=== PATIENT | female | born 1965 | race Two or more races ===

== ENCOUNTER 2020-08-29 14:06 | Outpatient (REF) | payer MEDICARE, SELFPAY | END 2020-08-29 14:07 | disposition home or self-care (01) | LOC: HO.LAB 14:06 | PROVIDERS: Visit Provider Internal Medicine | DX: Z20.828 Contact with and (suspected) exposure to other viral communicable diseases (principal) | CPT/HCPCS: C9803; U0003 ==

== ENCOUNTER 2020-09-18 12:27 | Outpatient (REF) | payer MEDICARE, SELFPAY | END 2020-09-18 12:28 | disposition home or self-care (01) | LOC: HO.LAB 12:27 | PROVIDERS: Visit Provider Internal Medicine | DX: Z20.822 Contact with and (suspected) exposure to COVID-19 (principal) | CPT/HCPCS: 36415; C9803; U0003 ==

== ENCOUNTER 2020-10-07 13:24 | Outpatient (REF) | payer MEDICARE, SELFPAY | END 2020-10-07 13:25 | disposition home or self-care (01) | LOC: HO.LAB 13:24 | PROVIDERS: Visit Provider Internal Medicine | DX: Z20.822 Contact with and (suspected) exposure to COVID-19 (principal) | CPT/HCPCS: 36415; C9803; U0003; U0005 ==

== ENCOUNTER 2020-10-21 09:11 | Outpatient (REF) | payer MEDICARE, SELFPAY | END 2020-10-21 09:12 | disposition home or self-care (01) | LOC: HO.LAB 09:11 | PROVIDERS: Visit Provider Internal Medicine | DX: Z20.822 Contact with and (suspected) exposure to COVID-19 (principal) | CPT/HCPCS: 36415; C9803; U0003; U0005 ==

== ENCOUNTER 2020-10-28 09:25 | Outpatient (REF) | payer MEDICARE, SELFPAY | END 2020-10-28 09:26 | disposition home or self-care (01) | LOC: HO.LAB 09:25 | PROVIDERS: Visit Provider Internal Medicine | DX: Z20.822 Contact with and (suspected) exposure to COVID-19 (principal) | CPT/HCPCS: 36415; C9803; U0003; U0005 ==

== ENCOUNTER 2021-07-10 11:26 | Observation (INO) | payer MEDICARE, SELFPAY ==
--- NOTE | ~2021-07-10 | XR_ITS ---
EXAMINATION: XR CHEST CLINICAL INFORMATION: Right facial droop COMPARISON: August 27, 2009 TECHNIQUE: Frontal view of the chest was obtained. FINDINGS: No significant abnormality is noted involving the heart, lungs, mediastinum, bony thorax or soft tissues. XR/XR chest 1V IMPRESSION: No acute disease.
--- NOTE | ~2021-07-10 | CT_ITS ---
EXAMINATION: CT HEAD WITHOUT CONTRAST (STROKE PROTOCOL) CLINICAL INFORMATION: Stroke protocol. Left facial droop since yesterday COMPARISON: April 20, 2017 TECHNIQUE: Contiguous axial imaging was performed from the skull base to vertex without intravenous administration of contrast. This CT examination was performed using dose optimization techniques as appropriate, variously including the following: *Automated exposure control *Adjustment of mA and/or kV according to patient size (this includes techniques or standardized protocols for targeted exams where dose is matched to indication/reason for exam; i.e. extremities or head) *Use of iterative reconstruction technique DLP: 657 mGy-cm FINDINGS: There is no intracranial hemorrhage, hematoma, or extra-axial fluid collection. The ventricles are normal in size. There is no hydrocephalus, edema, or mass effect. The tabor-white matter differentiation appears symmetric. There is no acute infarct or mass lesion. The calvarium appears intact. There is no pneumocephalus or orbital emphysema. The visualized sinuses and middle ears and mastoid air cells show no significant mucosal thickening. There are no air-fluid levels. CT/CT head for stroke IMPRESSION: No acute intracranial pathology. This critical result was discussed with Dr. Diaz at 12:03 PM hours on July 10, 2021. It was ascertained that the content and urgency of the report was understood at the time of direct communication.
[2021-07-10 11:31] VITALS: BP 133/80; PULSE 64; RESP 18; TEMP 36.6; O2SAT 99; BMI 27.1
--- NOTE | 2021-07-10 11:36 | ECG_ITS ---
Test Reason : STROKE Blood Pressure : / mmHG Vent. Rate : 060 BPM Atrial Rate : 060 BPM P-R Int : 130 ms QRS Dur : 080 ms QT Int : 418 ms P-R-T Axes : 056 038 049 degrees QTc Int : 418 ms Normal sinus rhythm Low voltage QRS Intra-ventricular conduction delay Borderline ECG When compared with ECG of 10-MAR-2017 13:43, No significant change was found Referred By: Generic ED Physician Electronically Signed By:DALE VÁSQUEZ MD
[2021-07-10 11:37] VITALS: BP 127/78; PULSE 65; RESP 18; TEMP 36.6; O2SAT 98
--- NOTE | 2021-07-10 12:00 | PC.NURSE ---
Addendum entered by Jaimee Vila RN 07/10/21 12:07: Patient states she has pressure in back of neck, states while driving to the hospital she states her face started feeling twitchy and felt her face froze driving here about 45 minutes ago. Patient Neuro deficit WDL. A+ox4. Symmetrical facial features. Patient able to raise both arms. Patient sensory WDL. VSS. Labs drawn and sent. IV placed and flushed. POC 95. NSR on tele. Original Note: patient states she has pressure in back of neck, states she was driving to hospital and states her face started feeling twitchy and felt her face froze driving here about 30 minutes ago.
[2021-07-10 12:09] LABS: MANUAL DIFF FLAG NO
[2021-07-10 12:14] LABS: Basophils Percent Auto 0.5 % (0-2); Eosinophils Absolute Auto 0.2 X10*3/uL (0.0-0.4); Eosinophils Percent Auto 2.7 % (0-4); Hematocrit 36.6 % (37.0-47.0); Hemoglobin 11.7 g/dl (12.0-16.0); Imm Gran Abs Auto 0.02 X10*3/uL (0.00-0.03); Imm Gran Pct Auto 0.3 % (0.0-0.4); Lymphocytes Percent Auto 25.7 % (20-40); Mean Corpuscular Hemoglobin 27.7 pg (27.0-33.0); Mean Corpuscular Volume 86.5 fL (80.0-98.0); Mean Platelet Volume 10.5 fL (9.4-12.3); Monocytes Absolute Auto 0.4 X10*3/uL (0.1-1.2); Monocytes Percent Auto 5.6 % (2-11); Neutrophils Absolute Auto 5.2 x10*3/uL (2.0-8.3); Neutrophils Percent Auto 65.2 % (45-73); Platelet Count 280 X10*3/uL (160-400); Red Blood Count 4.23 X10*6/uL (4.20-5.50); Red Cell Distribution Width 14.6 % (11.0-16.0); White Blood Count 7.9 X10*3/uL (4.8-10.8)
[2021-07-10 12:15] LABS: Glucose, Whole Blood 95 mg/dL (60-115)
[2021-07-10 12:17] LABS: INTERNATIONAL NORM RATIO 1.1 (0.9-1.1); Prothrombin Time 12.2 SEC (9.9-13.0)
--- NOTE | 2021-07-10 12:19 | ED.NEUROSD ---
HPI - Neuro Symptoms/Deficit General Chief Complaint: Neuro Symptoms/Deficit Stated Complaint: lt head pain, lt side facial droop Time Seen by Provider: 07/10/21 12:12 Source: patient and population health coach Mode of arrival: ambulatory Limitations: language barrier History of Present Illness HPI Narrative: 55-year-old female with history of MG, anxiety, GERD, previous CVA on 81mg daily here with complaints of left sided neck pain/pressure since yesterday with 30 minutes of left sided facial weakness. No visual changes, no numbness, tingling, speech changes, weakness in the extremities. Patient does report bilateral lower leg numbness and tingling since waking. No headache, dizziness. Patient takes 81 mg of aspirin daily. She has a history of myasthenia gravis and was diagnosed about 3 years ago. She is followed by Dr. Reddy from Neurology. She was taking pyridostimigime TID until 11/2020 when she ran out. She tells me she did not follow-up neurology because they did not call me for a follow-up. She denies any difficulty breathing or coughing. No difficulty tolerating secretion. No difficulty swallowing. No visual changes. Related Data Home Medications Medication Instructions Recorded Confirmed albuterol sulfate 90 mcg/actuation 2 puff INHALATION QID PRN 07/10/21 07/10/21 aerosol inhaler aspirin 81 mg tablet,delayed 1 tab PO ONCE 07/10/21 07/10/21 release carbidopa ER 25 mg-levodopa 100 mg 1 tab PO TID 07/10/21 07/10/21 tablet,extended release cholecalciferol (vitamin D3) 25 1 cap PO DAILY 07/10/21 07/10/21 mcg (1,000 unit) capsule (Vitamin D3) clonazepam 0.5 mg tablet 1 tab PO BID 07/10/21 07/10/21 duloxetine 60 mg capsule,delayed 1 cap PO BID 07/10/21 07/10/21 release ibuprofen 800 mg tablet 1 tab PO TID PRN 07/10/21 07/10/21 multivitamin with folic acid 400 1 tab PO DAILY 07/10/21 07/10/21 mcg tablet (Daily-Josie (with folic acid)) omeprazole 20 mg capsule,delayed 1 cap PO DAILY 07/10/21 07/10/21 release Allergies Allergy/AdvReac Type Severity Reaction Status Date / Time ANTIBIOTIC Allergy Unknown UNKNOWN Uncoded 05/16/20 17:06 Review of Systems Review of Systems: Yes all other systems are reviewed and are negative Constitutional: Constitutional: Reports no additional constitutional complaints, Denies body ache(s), Denies chills, Denies fever(s), Denies headache(s) and Reports weakness Eyes: Eyes: Reports no additional eye complaints and Denies change in vision ENT: Reports system reviewed and no additional complaints, except as documented, Denies dizziness, Denies headache(s), Denies nasal congestion, Denies nasal discharge and Reports neck pain Cardiovascular: Cardiovascular: Reports no additional cardiovascular complaints, Denies chest pain, Denies leg edema and Denies dyspnea Respiratory: Respiratory: Reports no additional respiratory complaints, Denies cough and Denies dyspnea Gastrointestinal: Gastrointestinal: Reports no additional gastrointestinal complaints, Denies abdominal pain, Denies diarrhea, Denies nausea and Denies vomiting Genitourinary: Genitourinary: Reports no additional female genitourinary complaints and Denies urinary incontinence Musculoskeletal: Musculoskeletal: Reports no additional musculoskeletal complaints, Denies back pain, Denies arthralgias, Denies joint swelling, Reports neck pain, Denies numbness and Denies tingling Integumentary/Breasts: Skin/Breast: Reports system reviewed and no additional complaints, except as docu and Denies rash Neurologic: Reports system reviewed and no additional complaints, except as documented, Denies Abnormal speech present, Denies dizziness, Denies headache(s), Denies numbness, Denies tingling and Reports weakness PMFSH Past Medical History Attestation statement: The following information was validated with the patient. Source: old records reviewed and nursing notes reviewed Medical History Anxiety Depression Gastroesophageal reflux disease Myasthenia gravis Social History Social History Advance Directives: No Advance Directives Information Provided: No Patient : No Physical Exam Vital Signs: Vital Signs: Last Vital Signs Temp 97.8 F 07/10/21 15:12 Pulse 55 07/10/21 15:12 Resp 18 07/10/21 15:12 BP 126/64 07/10/21 15:12 Pulse Ox 97 07/10/21 15:12 Body Mass Index 27.1 Const: General: cooperative, healthy appearing, comfortable and no acute distress Orientation/consciousness: patient oriented x3 Limitations: no limitations HENMT: Head: Yes normal to inspection Ears: hearing grossly normal bilaterally and TM's normal bilaterally General nose exam: Normal external nose present Face and sinus: Yes normal facial exam Mouth: Normal oral and palatal mucosa present Throat: Yes posterior oropharynx normal Eyes: General: appearance normal, both eyes and all related structures Pupils: Equal, round and reactive pupils present Neck: Other: Tenderness the left side of the neck over the posterior ossific it with no palpable thrill or bruit. NO swelling. Neck: Yes normal visual inspection Chest: Chest palpation & inspection: normal inspection of the chest Resp: Effort & Inspection: normal respiratory effort Auscultation: clear to auscultation bilaterally Cardio: Rate: regular rate Rhythm: regular rhythm Peripheral pulses: Peripheral pulses 2+ throughout GI: Inspection: Yes normal to inspection Palpation (GI): Soft to palpation and nontender Auscultation: normal bowel sounds Back/Spine/Pelvis: Thoracic/Lumbar Spine: thoracic and lumbar spine normal to inspection Skin: General skin exam: no rashes or lesions noted Neuro: General: patient oriented x3, no focal motor deficits and normal sensation to monofilament Cranial nerves: Yes CN's II-XII intact bilaterally, Yes Equal, round and reactive pupils present, Yes Bilaterally intact EOM present, Yes Nystagmus not present, Yes Normal facial strength present and Yes Midline tongue present Cognition (Neuro): normal cognition Speech: No Abnormal speech present Motor exam (neuro): 5/5 motor strength present throughout Sensory Exam: Normal double simultaneous stimulation for sensation Coordination: [id number] test normal and [id number] test normal Extrem: General: Yes normal to inspection, Yes no pedal edema and Yes no calf tenderness Course Course Course Narrative: 55-year-old female with history of myasthenia gravis, prior strokes here with complaints of left-sided neck pain since yesterday with 30 minutes of left-sided facial weakness. On exam the patient has an NIH score of 0. She is complaining of some left-sided facial twitching and I do noticed a spasm on exam and a slight droop but equal facial strength, sensation intact, tongue is midline with clear speech. There is a palpable muscle spasm over the left posterior occip and upper neck with no swelling, bruit/thrill. Feels more MS. Not likely related to reports of facial weakness. Less likely acute CVA with NIH 0. Will check labs, CT head, CXR, EKG Reevaluation(s) Reevaluation #1: 1215-The case was discussed with Dr. Chun. She went to evaluate the patient. Her exam is normal. Her NIH score is 0. She tells me that she feels like her weakness in her face is improved. We discussed obtaining a CT head and neck. Likely admit for TIA workup. Consider myasthenia gravis crisis. Less likely with improving exam. No other complaints of difficulty breathing, difficulty swallowing, tolerating secretions, weakness of the trunk, visual changes. However plan to discuss with Neurology Reevaluation #2: 0773-[id number] the patient with no change. NIH 0. Patient quite anxious, tearful at times. Feel she is allergic to IV contrast. When I asked the patient what her symptoms are she tells me palpitations and chest discomfort. But denies any shortness of breath, rash, vomiting, diarrhea. I do not feel like this is a true allergy but typical side effect of medication. Offered anxiety medication pre-procedure but patient declined. This was explained at length to patient with many alternatives offered but patient refused. Reevaluation #3: 0431-Spoke to Dr Reddy. Not likely MS crisis. Will admit for TIA w/u Additional Reevaluation(s): 7100-Discussed the case with Dr Ovalles who will admit patient MDM - Neuro Symptoms/Deficit MDM Narrative Medical decision making narrative: MG crisis, CVA, ICH, TIA Medical Records Attestation: I reviewed the patient's medical records. Lab Data Attestation: I reviewed the patient's lab results. Result diagrams: 07/10/21 12:06 07/10/21 12:06 Labs: Lab Results 07/10/21 07/10/21 07/10/21 Range/Units 12:02 12:06 12:06 WBC 7.9 (4.8-10.8) X10*3/uL RBC 4.23 (4.20-5.50) X10*6/uL Hgb 11.7 L (12.0-16.0) g/dl Hct 36.6 L (37.0-47.0) % MCV 86.5 (80.0-98.0) fL MCH 27.7 (27.0-33.0) pg MCHC 32.0 (31.0-35.0) g/dl RDW 14.6 (11.0-16.0) % Plt Count 280 (160-400) X10*3/uL MPV 10.5 (9.4-12.3) fL Immature Gran % (Auto) 0.3 (0.0-0.4) % Neut % (Auto) 65.2 (45-73) % Lymph % (Auto) 25.7 (20-40) % Phillips % (Auto) 5.6 (2-11) % Eos % (Auto) 2.7 (0-4) % Baso % (Auto) 0.5 (0-2) % Lymph # (Auto) 2.0 (1.2-4.9) X10*3/uL Phillips # (Auto) 0.4 (0.1-1.2) X10*3/uL Eos # (Auto) 0.2 (0.0-0.4) X10*3/uL Baso # (Auto) 0.0 (0.0-0.2) X10*3/uL Abs Immat Gran (auto) 0.02 (0.00-0.03) X10*3/uL Absolute Neuts (auto) 5.2 (2.0-8.3) x10*3/uL Absolute Nucleated RBC 0.000 (0.0-0.012) X10*3/uL Nucleated RBC % (auto) 0.0 (0.0-0.2) /100WBC PT 12.2 (9.9-13.0) SEC INR 1.1 (0.9-1.1) Sodium (135-145) mmol/L Potassium (3.3-5.1) mmol/L Chloride (96-108) mmol/L Carbon Dioxide (22-29) mmol/L Anion Gap (12-20) BUN (9-16) mg/dL Creatinine (0.5-1.4) mg/dL Estim Creat Clear Calc Estimated GFR POC Glucose 95 (60-115) mg/dL Random Glucose (60-115) mg/dL Calcium (8.4-10.2) mg/dL Magnesium (1.6-2.6) mg/dL Total Bilirubin (0.0-1.0) mg/dL Direct Bilirubin (0.0-0.5) mg/dL AST (5-31) U/L ALT (0-31) U/L Alkaline Phosphatase (39-117) U/L Troponin I High Sens (<3.5-17.0) ng/L Total Protein (6.5-8.0) g/dL Albumin (3.5-5.0) g/dL Hold Red Top COVID-19 (PREMA) (Negative) COVID-19 Clin Com 07/10/21 07/10/21 07/10/21 Range/Units 12:06 12:06 12:06 WBC (4.8-10.8) X10*3/uL RBC (4.20-5.50) X10*6/uL Hgb (12.0-16.0) g/dl Hct (37.0-47.0) % MCV (80.0-98.0) fL MCH (27.0-33.0) pg MCHC (31.0-35.0) g/dl RDW (11.0-16.0) % Plt Count (160-400) X10*3/uL MPV (9.4-12.3) fL Immature Gran % (Auto) (0.0-0.4) % Neut % (Auto) (45-73) % Lymph % (Auto) (20-40) % Phillips % (Auto) (2-11) % Eos % (Auto) (0-4) % Baso % (Auto) (0-2) % Lymph # (Auto) (1.2-4.9) X10*3/uL Phillips # (Auto) (0.1-1.2) X10*3/uL Eos # (Auto) (0.0-0.4) X10*3/uL Baso # (Auto) (0.0-0.2) X10*3/uL Abs Immat Gran (auto) (0.00-0.03) X10*3/uL Absolute Neuts (auto) (2.0-8.3) x10*3/uL Absolute Nucleated RBC (0.0-0.012) X10*3/uL Nucleated RBC % (auto) (0.0-0.2) /100WBC PT (9.9-13.0) SEC INR (0.9-1.1) Sodium 140 (135-145) mmol/L Potassium 4.1 (3.3-5.1) mmol/L Chloride 107 (96-108) mmol/L Carbon Dioxide 26 (22-29) mmol/L Anion Gap 11 L (12-20) BUN 11 (9-16) mg/dL Creatinine 0.75 (0.5-1.4) mg/dL Estim Creat Clear Calc 85.3 Estimated GFR > 60 POC Glucose (60-115) mg/dL Random Glucose 104 (60-115) mg/dL Calcium 9.0 (8.4-10.2) mg/dL Magnesium 1.9 (1.6-2.6) mg/dL Total Bilirubin 0.5 (0.0-1.0) mg/dL Direct Bilirubin 0.2 (0.0-0.5) mg/dL AST 20 (5-31) U/L ALT 7 (0-31) U/L Alkaline Phosphatase 61 (39-117) U/L Troponin I High Sens < 3.5 (<3.5-17.0) ng/L Total Protein 7.2 (6.5-8.0) g/dL Albumin 4.1 (3.5-5.0) g/dL Hold Red Top See Note COVID-19 (PREMA) (Negative) COVID-19 Clin Com 07/10/21 Range/Units 12:17 WBC (4.8-10.8) X10*3/uL RBC (4.20-5.50) X10*6/uL Hgb (12.0-16.0) g/dl Hct (37.0-47.0) % MCV (80.0-98.0) fL MCH (27.0-33.0) pg MCHC (31.0-35.0) g/dl RDW (11.0-16.0) % Plt Count (160-400) X10*3/uL MPV (9.4-12.3) fL Immature Gran % (Auto) (0.0-0.4) % Neut % (Auto) (45-73) % Lymph % (Auto) (20-40) % Phillips % (Auto) (2-11) % Eos % (Auto) (0-4) % Baso % (Auto) (0-2) % Lymph # (Auto) (1.2-4.9) X10*3/uL Phillips # (Auto) (0.1-1.2) X10*3/uL Eos # (Auto) (0.0-0.4) X10*3/uL Baso # (Auto) (0.0-0.2) X10*3/uL Abs Immat Gran (auto) (0.00-0.03) X10*3/uL Absolute Neuts (auto) (2.0-8.3) x10*3/uL Absolute Nucleated RBC (0.0-0.012) X10*3/uL Nucleated RBC % (auto) (0.0-0.2) /100WBC PT (9.9-13.0) SEC INR (0.9-1.1) Sodium (135-145) mmol/L Potassium (3.3-5.1) mmol/L Chloride (96-108) mmol/L Carbon Dioxide (22-29) mmol/L Anion Gap (12-20) BUN (9-16) mg/dL Creatinine (0.5-1.4) mg/dL Estim Creat Clear Calc Estimated GFR POC Glucose (60-115) mg/dL Random Glucose (60-115) mg/dL Calcium (8.4-10.2) mg/dL Magnesium (1.6-2.6) mg/dL Total Bilirubin (0.0-1.0) mg/dL Direct Bilirubin (0.0-0.5) mg/dL AST (5-31) U/L ALT (0-31) U/L Alkaline Phosphatase (39-117) U/L Troponin I High Sens (<3.5-17.0) ng/L Total Protein (6.5-8.0) g/dL Albumin (3.5-5.0) g/dL Hold Red Top COVID-19 (PREMA) Negative (Negative) COVID-19 Clin Com See Note Imaging Data CT scan - head: Attestation: I personally reviewed and interpreted this imaging study as follows: Radiologist's impression: [id number] [place] [id number] CT Scan Report Signed Patient: Ирина Parekh MR#: [id number] : 1965 Acct:[id number] Age/Sex: 55 / F ADM Date: 07/10/21 Loc: .ED Attending Dr: Ordering Physician: Generic ED Physician Date of Service: 07/10/21 Procedure(s): CT head for stroke Accession Number(s): [id number] cc: Generic ED Physician~ EXAMINATION: CT HEAD WITHOUT CONTRAST (STROKE PROTOCOL) CLINICAL INFORMATION: Stroke protocol. Left facial droop since yesterday? COMPARISON: April 20, 2017 TECHNIQUE: Contiguous axial imaging was performed from the skull base to vertex without intravenous administration of contrast. This CT examination was performed using dose optimization techniques as appropriate, variously including the following: *Automated exposure control *Adjustment of mA and/or kV according to patient size (this includes techniques or standardized protocols for targeted exams where dose is matched to indication/reason for exam; i.e. extremities or head) *Use of iterative reconstruction technique DLP: 657 mGy-cm FINDINGS: There is no intracranial hemorrhage, hematoma, or extra-axial fluid collection.? The ventricles are normal in size. There is no hydrocephalus, edema, or mass effect.? The tabor-white matter differentiation appears symmetric. There is no acute infarct or mass lesion. The calvarium appears intact. There is no pneumocephalus or orbital emphysema.? The visualized sinuses and middle ears and mastoid air cells show no significant mucosal thickening. There are no air-fluid levels. CT/CT head for stroke IMPRESSION: No acute intracranial pathology. ? Chest x-ray: Attestation: I personally reviewed and interpreted this imaging study as follows: Radiologist's impression: FINDINGS: No significant abnormality is noted involving the heart, lungs, mediastinum, bony thorax or soft tissues. XR/XR chest 1V IMPRESSION: No acute disease. ? ECG Data Attestation: I personally reviewed and interpreted this ECG as follows: ECG interpretation date: 07/10/21 ECG interpretation time: 12:28 Interpretation: Normal sinus rhythm, normal DE, normal QRS, QTC 418 NIH Stroke Scale Internal: Initial- Upon Arrival Level of Consciousness: Alert Level of Consciousness Questions: Answers both questions correctly Level of Consciousness Commands: Performs both tasks correctly Best Gaze: Normal Visual: No visual loss Facial Palsy: Normal Motor Arm (Right): No drift Motor Arm (Left): No drift Motor Leg (Right): No drift Motor Leg (Left): No drift Limb Ataxia: Absent Sensory: Normal Best Language: No aphasia Dysarthia: Normal Extinction and Inattention: No abnormality Score: 0 Critical Care Time Critical Care Time Critical Care Time: Yes Total Critical Care Time: 30 Attestation: Multiple re-evaluations for neurological status, discussion with Neurology. Discussion with the medicine Discharge Plan Discharge Clinical Impression: TIA (transient ischemic attack) Patient Disposition: Admitted As Inpatient
[2021-07-10 12:25] LABS: Anion Gap 11 (12-20); Blood Urea Nitrogen 11 mg/dL (9-16); Carbon Dioxide 26 mmol/L (22-29); Chloride 107 mmol/L (96-108); Creatinine Clr Calc Pharmacy 85.3; Estimated Glomerular Filt Rate > 60; Glucose Random 104 mg/dL (60-115); Potassium 4.1 mmol/L (3.3-5.1); Sodium 140 mmol/L (135-145)
[2021-07-10 12:26] LABS: Stroke Lab Use COMPLETE
[2021-07-10 12:32] LABS: Troponin-I High Sensitivity < 3.5 ng/L (<3.5-17.0)
[2021-07-10 12:43] LABS: Alanine Aminotransferase 7 U/L (0-31); Albumin Level 4.1 g/dL (3.5-5.0); Alkaline Phosphatase 61 U/L (39-117); Aspartate Amino Transferase 20 U/L (5-31); Bilirubin Direct 0.2 mg/dL (0.0-0.5); Bilirubin Total 0.5 mg/dL (0.0-1.0); Magnesium 1.9 mg/dL (1.6-2.6); Total Protein 7.2 g/dL (6.5-8.0)
[2021-07-10 13:00] LABS: COVID-19 Test Negative (Negative); IDNOW Serial# 9DD0AD1C
--- NOTE | 2021-07-10 13:05 | PHA.MEDREC ---
Pharmacy Consult ? Medication Reconciliation Pharmacy has completed the medication reconciliation. There are no remarkable issues for provider's attention. Patient's claim history matched up with what patient reported. Ayse Delarosa, VidhyaD
[2021-07-10 15:12] VITALS: BP 126/64; PULSE 55; RESP 18; TEMP 36.6; O2SAT 97
--- NOTE | 2021-07-10 15:30 | PM.IMHP ---
History of Present Illness Date of Service: 07/10/21 Attending physician on admission: Destiny Ovalles Chief Complaint: Left-sided neck pain/left face weakness 55-year-old female patient, with by his medical history significant for myasthenia gravis previously on prior doc stick mean stopped using it since November, also history of anxiety, GERD question history of CVA on 81 mg of aspirin presented to [facility] since she developed strong pressure-like left-sided neck pain since yesterday, did not take any medicines for that at home, was coming to ER for evaluation while driving the car noticed that her face was pulled torward right side as she noted in the mirror, denies any other associated visual symptoms,, no weakness numbness of extremities, in the emergency room noted to have normal speech, however ER provider noted Facial spasm, CT head was obtained that showed no acute abnormality, checks x-ray showed no abnormality EKG is benign, ER provider discuss case with Dr. Reddy who recommend to admit patient for close neurological monitoring for possible TIA. Review of Systems Review of Systems: General no dizziness, no fever chills. CVS no chest pain, no palpitation. Respiratory no cough, no sob. Gastrointestinal no nausea no vomiting, no abdominal pain Skin no rash Musculoskeletal no pain no urinary symptoms of frequency or urgency Yes all other systems are reviewed and are negative PMFSH Medical History Anxiety Depression Gastroesophageal reflux disease Myasthenia gravis Pertinent family history: No family history of premature coronary artery disease Social History Advance Directives: No Advance Directives Information Provided: No Patient : No Meds Allergies Allergy/AdvReac Type Severity Reaction Status Date / Time ANTIBIOTIC Allergy Unknown UNKNOWN Uncoded 05/16/20 17:06 Active Medications: Current Medications Acetaminophen (Acetaminophen 325 Mg Tablet) 650 mg PO Q6H PRN PRN Reason: Pain, Mild (Pain Scale 1-3) Albuterol Sulfate (Albuterol Sulfate 90 Mcg 8 Gm Inhaler) 2 puff INHALE QID PRN PRN Reason: asthma Aspirin (Aspirin Enteric Coated 81 Mg Tablet.Dr) 81 mg PO ONCE MAGALIE Carbidopa/Levodopa (Carbidopa/Levodopa Cr 25/100 Tablet.Er) 1 tab PO TID MAGALIE Clonazepam (Clonazepam 0.5 Mg Tablet) 0.5 mg PO BID [facility] Duloxetine HCl (Duloxetine Hcl 60 Mg Capsule.) 60 mg PO BID [facility] Enoxaparin Sodium (Enoxaparin Sodium 40 Mg/0.4 Ml Syringe) 40 mg SUBCUT Q24H [facility] Ibuprofen (Ibuprofen 400 Mg Tablet) 400 mg PO Q6H PRN PRN Reason: Fever or Pain, Mild (Pain Scale 1-3) Multivitamins/Vitamin C (Multivitamin Tablet) 1 tab PO DAILY [facility] Omeprazole (Omeprazole 20 Mg Capsule.) 20 mg PO DAILY [facility] Ondansetron HCl (Ondansetron Hcl 4 Mg/2 Ml Vial) 4 mg IVPUSH Q8H PRN PRN Reason: Nausea and Vomiting Pharmacy Consult (Consult Rx Perform Med Rec) 1 each MISCELLANE ONCE PRN PRN Reason: Consult order Sodium Chloride (0.9 % Sodium Chloride Flush 3 Ml Syringe) 3 ml IVFLUSH QSHIFT [facility] Home Medications Medication Instructions Recorded Confirmed Last Taken Type albuterol sulfate 90 mcg/actuation 2 puff INHALATION QID PRN 07/10/21 07/10/21 07/10/21 History aerosol inhaler aspirin 81 mg tablet,delayed 1 tab PO ONCE 07/10/21 07/10/21 07/10/21 History release carbidopa ER 25 mg-levodopa 100 mg 1 tab PO TID 07/10/21 07/10/21 07/10/21 History tablet,extended release cholecalciferol (vitamin D3) 25 1 cap PO DAILY 07/10/21 07/10/21 07/10/21 History mcg (1,000 unit) capsule (Vitamin D3) clonazepam 0.5 mg tablet 1 tab PO BID 07/10/21 07/10/21 Unknown History duloxetine 60 mg capsule,delayed 1 cap PO BID 07/10/21 07/10/21 07/10/21 History release ibuprofen 800 mg tablet 1 tab PO TID PRN 07/10/21 07/10/21 Unknown History multivitamin with folic acid 400 1 tab PO DAILY 07/10/21 07/10/21 07/10/21 History mcg tablet (Daily-Josie (with folic acid)) omeprazole 20 mg capsule,delayed 1 cap PO DAILY 07/10/21 07/10/21 07/10/21 History release Physical Exam Vital Signs and Narrative: Vital Signs: Last Vital Signs Temp 97.8 F 07/10/21 15:12 Pulse 55 07/10/21 15:12 Resp 18 07/10/21 15:12 BP 126/64 07/10/21 15:12 Pulse Ox 97 07/10/21 15:12 Body Mass Index 27.1 General awake,alert x 3, no acute distress. Neck supple ,no JVD, point tenderness at left base of neck, no redness, no spasms CVS regular rate rhythm,no mumurs Respiratory lungs clear to auscultation, no respiratory distress, no wheeze, no rhonchi. Gastrointestinal abdomen soft, nontender, bowel sounds audible, no guarding , no rigidity. Extremities no edema. Neuro nonfocal , cranial nerve 2-12 intact, speech clear, tongue midline, no facial asymmetry Skin no rash Psych appropriate affect Results Labs CBC and Chem 7: 07/10/21 12:06 07/10/21 12:06 Labs: Laboratory Results - last 24 hr 07/10/21 07/10/21 07/10/21 12:02 12:06 12:06 MCV 86.5 MCH 27.7 MCHC 32.0 RDW 14.6 Plt Count 280 MPV 10.5 Immature Gran % (Auto) 0.3 Neut % (Auto) 65.2 Lymph % (Auto) 25.7 [place] % (Auto) 5.6 Eos % (Auto) 2.7 Baso % (Auto) 0.5 Lymph # (Auto) 2.0 [place] # (Auto) 0.4 Eos # (Auto) 0.2 Baso # (Auto) 0.0 Abs Immat Gran (auto) 0.02 Absolute Neuts (auto) 5.2 Absolute Nucleated RBC 0.000 Nucleated RBC % (auto) 0.0 PT 12.2 INR 1.1 Anion Gap Estim Creat Clear Calc Estimated GFR POC Glucose 95 Random Glucose Calcium Magnesium Total Bilirubin Direct Bilirubin AST ALT Alkaline Phosphatase Troponin I High Sens Total Protein Albumin Hold Red Top COVID-19 (PREMA) COVID-19 Clin Com 07/10/21 07/10/21 07/10/21 12:06 12:06 12:06 MCV MCH MCHC RDW Plt Count MPV Immature Gran % (Auto) Neut % (Auto) Lymph % (Auto) [place] % (Auto) Eos % (Auto) Baso % (Auto) Lymph # (Auto) [place] # (Auto) Eos # (Auto) Baso # (Auto) Abs Immat Gran (auto) Absolute Neuts (auto) Absolute Nucleated RBC Nucleated RBC % (auto) PT INR Anion Gap 11 L Estim Creat Clear Calc 85.3 Estimated GFR > 60 POC Glucose Random Glucose 104 Calcium 9.0 Magnesium 1.9 Total Bilirubin 0.5 Direct Bilirubin 0.2 AST 20 ALT 7 Alkaline Phosphatase 61 Troponin I High Sens < 3.5 Total Protein 7.2 Albumin 4.1 Hold Red Top See Note COVID-19 (PREMA) COVID-19 Clin Com 07/10/21 12:17 MCV MCH MCHC RDW Plt Count MPV Immature Gran % (Auto) Neut % (Auto) Lymph % (Auto) [place] % (Auto) Eos % (Auto) Baso % (Auto) Lymph # (Auto) [place] # (Auto) Eos # (Auto) Baso # (Auto) Abs Immat Gran (auto) Absolute Neuts (auto) Absolute Nucleated RBC Nucleated RBC % (auto) PT INR Anion Gap Estim Creat Clear Calc Estimated GFR POC Glucose Random Glucose Calcium Magnesium Total Bilirubin Direct Bilirubin AST ALT Alkaline Phosphatase Troponin I High Sens Total Protein Albumin Hold Red Top COVID-19 (PREMA) Negative COVID-19 Clin Com See Note Imaging Radiologist's Impressions: Impressions Chest X-Ray 07/10/21 11:36 IMPRESSION: No acute disease. Head CT 07/10/21 11:36 IMPRESSION: No acute intracranial pathology. This critical result was discussed with Dr. Diaz at 12:03 PM hours on July 10, 2021. It was ascertained that the content and urgency of the report was understood at the time of direct communication. Assessment and Plan (1) TIA (transient ischemic attack): Status: Acute 55-year-old female Patient with past medical history significant for myasthenia gravis not on any medications since November, also on Sinemet, with prior history of CVA with no residual on aspirin presented to [facility] due to strong pressure-like pain at base of left neck while driving a car on her way to emergency room noticed that her mouth is pulled towards the right side otherwise offered no other neurological symptoms. Left-sided neck pain/transient facial spasm Motrin and K-pad for neck pain Will admit to medical floor, neuro checks CT head negative Neuro consult with concern for TIA Myasthenia gravies Treatment plan as per Neurology On Sinemet question history of Parkinson's disease History of anxiety continue Klonopin DVT prophylaxis with Lovenox Code status full code Quality Stroke Does the patient have a stroke diagnosis?: No VTE Prior VTE?: No VTE Risk Level:: Medical - moderate - high VTE Device Contraindication: Treatment Not Indicated VTE Drug Contraindication: N/A - Med Ordered
--- NOTE | 2021-07-10 16:02 | P.CNNE_ITS ---
History of Present Illness Data of Consult Service Date: 07/10/21 Primary Care Provider: Unknown Physician HPI Reason for consult: Headache 55 years old woman with underlying history of probably myasthenia gravis as she has complaints of chronic fatigue and her acetyl choline receptor antibody titer has been high. He also had previous diagnosis of migraine and migraine equivalent syndrome. She came to hospital with a pain that started in left side of her head and neck yesterday and now it was mostly in the occipital area. She said that it was moderate and also she had some facial numbness and asymmetry that now was resolved. She denied that she was having frequent headaches stating that maybe once a month. There was no other complaint. There was no recent trauma. Review of Systems Review of Systems: No recent cold or flu-like illness. No breathing or swallowing difficulty. [facility] Past Medical History Medical History Anxiety Depression Gastroesophageal reflux disease Myasthenia gravis Social History Social History Advance Directives: No Advance Directives Information Provided: No Patient : No Meds Allergies Allergy/AdvReac Type Severity Reaction Status Date / Time ANTIBIOTIC Allergy Unknown UNKNOWN Uncoded 05/16/20 17:06 Active Medications: Current Medications Acetaminophen (Acetaminophen 325 Mg Tablet) 650 mg PO Q6H PRN PRN Reason: Pain, Mild (Pain Scale 1-3) Albuterol Sulfate (Albuterol Sulfate 90 Mcg 8 Gm Inhaler) 2 puff INHALE QID PRN PRN Reason: asthma Aspirin (Aspirin Enteric Coated 81 Mg Tablet.) 81 mg PO ONCE MAGALIE Carbidopa/Levodopa (Carbidopa/Levodopa Cr 25/100 Tablet.Er) 1 tab PO TID MAGALIE Clonazepam (Clonazepam 0.5 Mg Tablet) 0.5 mg PO BID MAGALIE Duloxetine HCl (Duloxetine Hcl 60 Mg Capsule.) 60 mg PO BID MAGALIE Enoxaparin Sodium (Enoxaparin Sodium 40 Mg/0.4 Ml Syringe) 40 mg SUBCUT Q24H MAGALIE Ibuprofen (Ibuprofen 400 Mg Tablet) 400 mg PO Q6H PRN PRN Reason: Fever or Pain, Mild (Pain Scale 1-3) Multivitamins/Vitamin C (Multivitamin Tablet) 1 tab PO DAILY MAGALIE Omeprazole (Omeprazole 20 Mg Capsule.) 20 mg PO DAILY [facility] Ondansetron HCl (Ondansetron Hcl 4 Mg/2 Ml Vial) 4 mg IVPUSH Q8H PRN PRN Reason: Nausea and Vomiting Pharmacy Consult (Consult Rx Perform Med Rec) 1 each MISCELLANE ONCE PRN PRN Reason: Consult order Sodium Chloride (0.9 % Sodium Chloride Flush 3 Ml Syringe) 3 ml IVFLUSH QSHIFT [facility] Home Medications Medication Instructions Recorded Confirmed Last Taken Type albuterol sulfate 90 mcg/actuation 2 puff INHALATION QID PRN 07/10/21 07/10/21 07/10/21 History aerosol inhaler aspirin 81 mg tablet,delayed 1 tab PO ONCE 07/10/21 07/10/21 07/10/21 History release carbidopa ER 25 mg-levodopa 100 mg 1 tab PO TID 07/10/21 07/10/21 07/10/21 History tablet,extended release cholecalciferol (vitamin D3) 25 1 cap PO DAILY 07/10/21 07/10/21 07/10/21 History mcg (1,000 unit) capsule (Vitamin D3) clonazepam 0.5 mg tablet 1 tab PO BID 07/10/21 07/10/21 Unknown History duloxetine 60 mg capsule,delayed 1 cap PO BID 07/10/21 07/10/21 07/10/21 History release ibuprofen 800 mg tablet 1 tab PO TID PRN 07/10/21 07/10/21 Unknown History multivitamin with folic acid 400 1 tab PO DAILY 07/10/21 07/10/21 07/10/21 History mcg tablet (Daily-Josie (with folic acid)) omeprazole 20 mg capsule,delayed 1 cap PO DAILY 07/10/21 07/10/21 07/10/21 History release Physical Exam Vital Signs: Vital Signs: Last Vital Signs Temp 97.8 F 07/10/21 15:12 Pulse 55 07/10/21 15:12 Resp 18 07/10/21 15:12 BP 126/64 07/10/21 15:12 Pulse Ox 97 07/10/21 15:12 Body Mass Index 27.1 Neuro: Other: She was alert and awake with normal spontaneity of speech fluency comprehension and affect. Face was symmetrical. Extraocular muscles were intact. Visual ta are full. There was no ptosis. There was no focal weakness. Results Labs CBC & Chem 7: 07/10/21 12:06 07/10/21 12:06 Labs: Short CBC 07/10/21 Range/Units 12:06 WBC 7.9 (4.8-10.8) X10*3/uL Hgb 11.7 L (12.0-16.0) g/dl Hct 36.6 L (37.0-47.0) % Plt Count 280 (160-400) X10*3/uL BMP 07/10/21 12:06 Sodium 140 Potassium 4.1 Chloride 107 Carbon Dioxide 26 BUN 11 Creatinine 0.75 Calcium 9.0 Liver Function 07/10/21 Range/Units 12:06 Total Bilirubin 0.5 (0.0-1.0) mg/dL Direct Bilirubin 0.2 (0.0-0.5) mg/dL AST 20 (5-31) U/L ALT 7 (0-31) U/L Alkaline Phosphatase 61 (39-117) U/L Albumin 4.1 (3.5-5.0) g/dL Noncontrast head CT was unremarkable Assessment and Plan (1) Migraine: Status: Acute 54 years old woman with previous history of migraine and migraine equivalent syndrome developed a pain in left side of the head and neck with facial numbness in his symmetry which now was resolved. She was still having moderate pain with no obvious explanation. Most likely reason for this syndrome was migraine. I recommend sumatriptan 50 mg p.r.n.. She was not having frequent headaches and a preventive medicine was not needed at this time. (2) Myasthenia gravis: Status: Acute There was no evidence of excess or [place] johansen. She had been prescribed by her distinct main 3 times a day for symptomatic management that she can continue to take. Procedures Date of Service Date of Service: 07/10/21
--- NOTE | 2021-07-10 17:33 | PC.NURSE ---
Patient frustrated her dinner tray is not here yet. Explained it will not be here until closer to 615pm. Offered sandwich and other snacks in meantime. Patient states this hospital is horrible and she wants to leave. Been educated on AMA. Patient agreed to leave AMA.
--- NOTE | 2021-07-10 17:44 | PM.EVENT ---
Event Note Date of Service: 07/10/21 Event Note: Patient left AMA soon after admit Discharge diagnosis Migraine headache
== END 2021-07-10 17:35 | disposition left against medical advice (07) ==
LOC: HO.ED 13:34 → HO.EDOVER 15:32
PROVIDERS: Nurse Practitioner Family; Admitting Provider Hospitalist; Emergency Provider Emergency Medicine; Visit Provider Hospitalist
DX: G43.109 Migraine with aura, not intractable, without status migrainosus (principal); M54.2 Cervicalgia; G70.00 Myasthenia gravis without (acute) exacerbation; R29.810 Facial weakness; R20.0 Anesthesia of skin; I45.89 Other specified conduction disorders; K21.9 Gastro-esophageal reflux disease without esophagitis; F41.8 Other specified anxiety disorders; Z20.822 Contact with and (suspected) exposure to COVID-19; Z88.1 Allergy status to other antibiotic agents; Z79.899 Other long term (current) drug therapy; Z53.29 Procedure and treatment not carried out because of patient's decision for other reasons
CPT/HCPCS: 36415; 70450; 71045; 80048; 80076; 82947; 83735; 84484; 85025; 85610; 87635; 93005; 96372; 96374; 96375; 99218; 99283; 99285

== ENCOUNTER 2023-08-05 19:03 | Emergency (ER) | payer MEDICARE, SELFPAY ==
--- NOTE | ~2023-08-05 | XR_ITS ---
EXAMINATION: XR CHEST CLINICAL INFORMATION: Cough, history of TB. COMPARISON: Chest radiograph 07/10/2021. TECHNIQUE: Frontal view of the chest was obtained. FINDINGS: No focal airspace opacities, pleural effusion or pneumothorax. Normal cardiomediastinal silhouette. No acute osseous findings. Visualized upper abdomen is within normal limits. XR/XR chest 1V IMPRESSION: No acute cardiopulmonary findings. No radiographic evidence of active tuberculosis.
--- NOTE | ~2023-08-05 | CT_ITS ---
EXAMINATION: CT CHEST WITHOUT CONTRAST CLINICAL INFORMATION: Cough for one month. COMPARISON: CT chest 06/16/2018. TECHNIQUE: Multidetector volumetric CT imaging of the chest was done. Axial MIP volume rendering provided. Sagittal and coronal reformatted images were obtained. This CT examination was performed using dose optimization techniques as appropriate, variously including the following: *Automated exposure control *Adjustment of mA and/or kV according to patient size (this includes techniques or standardized protocols for targeted exams where dose is matched to indication/reason for exam; i.e. extremities or head) *Use of iterative reconstruction technique DLP: 262 mGy-cm FINDINGS: LUNGS: Evaluation of details and nodules is limited due to motion. New linear-like opacities in the left lung base favoring to represent scarring or subsegmental atelectasis. Slightly increased mild diffuse bronchial wall with scattered mucus plugging. Stable areas of platelike opacities in the left upper lobe suggestive of scarring with also stable multiple linear/branching calcifications in the left upper lobe suggestive of calcific broncholiths. Unchanged biapical subpleural thickening/scarring. No focal consolidation or significant groundglass atelectasis. Central airways are patent. A few bilateral calcified granulomas are seen. No discrete pulmonary mass. As before, evaluation of pulmonary nodules is very limited due to motion. MEDIASTINUM: Normal heart size. No pericardial effusion. No mediastinal lymphadenopathy. Redemonstration of partially calcified subcarinal and left hilar lymph nodes. Normal appearance of the thyroid gland. CORONARY ARTERY CALCIFICATION: Coronary artery calcifications are seen. PLEURA: No pleural effusion or pneumothorax. AXILLA: No chest wall mass. No axillary lymphadenopathy. UPPER ABDOMEN: Limited noncontrast examination without significant abnormality. OSSEOUS STRUCTURES: No acute or aggressive appearing osseous findings. CT/CT chest wo IV con IMPRESSION: Evaluation is limited due to motion. 1. Slightly increased mild bronchial wall thickening with scattered mucus plugging suggesting the presence of an infectious/inflammatory process of the small airways. 2. No focal consolidation or significant groundglass atelectasis. 3. Unchanged scarring and calcification bronchiolitis in the left upper lobe. 4. Evidence of prior granulomatous disease with calcified mediastinal and hilar lymph nodes and calcified pulmonary granulomas.
--- NOTE | 2023-08-05 19:35 | ED.GENADULT ---
HPI - General Adult General Chief complaint: General Medical Stated complaint: bodyaches,vomiting,fever x1 month Time Seen by Provider: 08/05/23 19:55 Source: patient Mode of arrival: ambulatory Limitations: no limitations History of Present Illness HPI narrative: Patient history of asthma/bronchitis history of pulmonary tuberculosis in 1985 treated for 4 years with follow-up negative for relapse been in good health went to [facility] on 07/06 till 07/13 had diarrhea nausea and since then she has been coughing cough is mostly dry especially in the nighttime with fever off and on decreased p.o. intake as some nausea no night sweats no other family member sick Related Data Home Medications Medication Instructions Recorded Confirmed albuterol sulfate 90 mcg/actuation 2 puff inhalation QID PRN asthma 07/10/21 07/10/21 aerosol inhaler aspirin 81 mg tablet,delayed 1 tab PO ONCE 07/10/21 07/10/21 release carbidopa ER 25 mg-levodopa 100 mg 1 tab PO TID 07/10/21 07/10/21 tablet,extended release cholecalciferol (vitamin D3) 25 1 cap PO DAILY 07/10/21 07/10/21 mcg (1,000 unit) capsule (Vitamin D3) clonazepam 0.5 mg tablet 1 tab PO BID 07/10/21 07/10/21 duloxetine 60 mg capsule,delayed 1 cap PO BID 07/10/21 07/10/21 release ibuprofen 800 mg tablet 1 tab PO TID PRN Pain, Mild 07/10/21 07/10/21 multivitamin with folic acid 400 1 tab PO DAILY 07/10/21 07/10/21 mcg tablet (Daily-Josie (with folic acid)) omeprazole 20 mg capsule,delayed 1 cap PO DAILY 07/10/21 07/10/21 release Previous Rx's Medication Instructions Recorded benzonatate 200 mg capsule 200 mg PO TID PRN cough #30 caps 08/05/23 cefuroxime axetil 500 mg tablet 500 mg PO BID 10 days #20 tabs 08/05/23 prednisone 20 mg tablet 40 mg (2 x 20 mg) PO DAILY #10 tabs 08/05/23 Allergies Allergy/AdvReac Type Severity Reaction Status Date / Time ANTIBIOTIC Allergy Unknown UNKNOWN Uncoded 05/16/20 17:06 Review of Systems Review of Systems: Yes all other systems are reviewed and are negative PMFSH Past Medical History Medical History Myasthenia gravis Migraine Gastroesophageal reflux disease Myasthenia gravis Depression Anxiety Social History Social History Advance Directives: No Advance Directives Information Provided: No Physical Exam ED Vital Signs: Vital Signs - 24 hr 08/05/23 19:38 08/05/23 21:19 08/05/23 23:13 Temperature 96.8 F Pulse Rate 76 79 66 Respiratory Rate 18 18 18 Blood Pressure 113/69 104/65 Pulse Oximetry 98 96 Oxygen Delivery Method Room Air Room Air BMI result Body Mass Index 25.8 Appearance: Alert. Oriented X3. No acute distress. Eyes: PERRLA, No Nystagmus ENT: Pharynx normal. Oral Mucosa moist Neck: Normal inspection. Neck supple. CVS: Normal heart rate and rhythm. Pulses normal. Respiratory: No respiratory distress. Equal air entry bilateral, prolonged expiration with frequent cough Abdomen: Soft and nontender. Bowel sounds are present, no mass palpable, no CVA tenderness Skin: Skin warm and dry. Normal skin color. Normal skin turgor. Extremities: No lower extremity edema. No calf tenderness Neuro: Oriented X 3. No motor deficit. Course Course Course Narrative: This is an RME: Additional HPI, ROS, PE not included below will be deferred to primary provider. 55-year-old female patient, with by his medical history significant for tuberculosis diagnosed in [place], myasthenia gravis, presenting to the emergency department with complaints of shortness of breath, body aches, cough, SOB and night sweats. Reports symptoms are similar to tuberculosis she had in the past. Was treated for TB around 33 years ago Plan: Labs, CXR, viral swabs Medications Administered Discontinued Medications Generic Name Dose Route Start Last Admin Trade Name Freq PRN Reason Stop Dose Admin Cefuroxime Axetil 500 mg 08/05/23 21:59 08/05/23 23:11 Cefuroxime Axetil 500 Mg Tablet PO 08/05/23 22:00 500 mg ONCE ONE Administration Albuterol Sulfate 2.5 mg/ 0 mg 08/05/23 20:28 08/05/23 21:17 Albuterol/Ipratropium 3 ml INHALE 08/05/23 20:29 2 dose ONCE ONE Administration Dexamethasone 10 mg 08/05/23 20:28 08/05/23 20:34 Dexamethasone 2 Mg Tablet PO 08/05/23 20:29 10 mg ONCE ONE Administration Guaifenesin/Codeine Phosphate 10 ml 08/05/23 20:28 08/05/23 20:34 Guaifen/Codeine Sf 200/20/10ml 10 Ml Liquid PO 08/05/23 20:29 10 ml ONCE ONE Administration Medical Decision Making Medical Decision Making [facility] Narrative: Patient with chronic cough with history of asthma chest x-ray negative for any cavitary lesions patient does have dry cough likely bronchitis. Also patient has arthritis with multiple joint involvement lab workup showed sed rate of 80 which is likely from chronic illness not from pulmonary tuberculosis will do CT scan of the chest as patient has been coughing for last 1 month give antibiotic prednisone and advised to continue albuterol inhaler likely the cause of cough is bronchitis 0020: I reviewed the CT chest which demonstrates mild bronchial wall thickening with mucus plugging. My interpretation is patient has bronchitis and will be discharged on steroids, antibiotics as well as inhalers. Differential Diagnosis Differential Diagnoses: The differential diagnosis associated with the presentation includes Lab Data [facility] Lab Attestation statement: I reviewed the patient's lab results. 08/05/23 20:29 08/05/23 20:29 Labs: Lab Results 08/05/23 Range/Units 20:29 WBC 6.1 (4.8-10.8) X10*3/uL RBC 3.84 L (4.20-5.50) X10*6/uL Hgb 10.2 L (12.0-16.0) g/dl Hct 32.7 L (37.0-47.0) % MCV 85.2 (80.0-98.0) fL MCH 26.6 L (27.0-33.0) pg MCHC 31.2 (31.0-35.0) g/dl RDW 14.1 (11.0-16.0) % Plt Count 311 (160-400) X10*3/uL MPV 10.7 (9.4-12.3) fL Immature Gran % (Auto) 0.3 (0.0-0.4) % Neut % (Auto) 56.1 (45-73) % Lymph % (Auto) 30.5 (20-40) % [place] % (Auto) 9.6 (2-11) % Eos % (Auto) 2.8 (0-4) % Baso % (Auto) 0.7 (0-2) % Lymph # (Auto) 1.9 (1.2-4.9) X10*3/uL [place] # (Auto) 0.6 (0.1-1.2) X10*3/uL Eos # (Auto) 0.2 (0.0-0.4) X10*3/uL Baso # (Auto) 0.0 (0.0-0.2) X10*3/uL Abs Immat Gran (auto) 0.02 (0.00-0.03) X10*3/uL Absolute Neuts (auto) 3.4 (2.0-8.3) x10*3/uL Absolute Nucleated RBC 0.000 (0.0-0.012) X10*3/uL Nucleated RBC % (auto) 0.0 (0.0-0.2) /100WBC ESR 80 H (0-20) MM/HR Sodium 140 (135-145) mmol/L Potassium 4.2 (3.3-5.1) mmol/L Chloride 106 (96-108) mmol/L Carbon Dioxide 25 (22-29) mmol/L Anion Gap 13 (12-20) BUN 22 H (9-16) mg/dL Creatinine 0.87 (0.5-1.4) mg/dL Estim Creat Clear Calc 70.1 Estimated GFR > 60 Random Glucose 116 H (60-115) mg/dL Calcium 9.3 (8.4-10.2) mg/dL Total Bilirubin 0.5 (0.0-1.0) mg/dL Direct Bilirubin 0.2 (0.0-0.5) mg/dL AST 16 (5-31) U/L ALT 13 (0-31) U/L Alkaline Phosphatase 57 (39-117) U/L Total Protein 7.4 (6.5-8.0) g/dL Albumin 3.8 (3.5-5.0) g/dL Influenza Type A (PCR) NEGATIVE (Negative) Influenza Type B (PCR) NEGATIVE (Negative) RSV RNA Qual (PCR) NEGATIVE (Negative) SARS-CoV-2 RNA (RT-PCR) NEGATIVE (Negative) Independent Interpretation I performed an independent interpretation of an: Plain X-Ray Radiology Impression Discussion of test interpretation with radiology: I have reviewed the radiologist's reading. Discharge Plan Discharge Clinical Impression: Acute bronchitis Patient Disposition: Home, Self-Care Instructions: Acute Bronchitis (ED) Additional Instructions: Continues to use your inhaler daily every 4-6 hours as needed Cough drops as prescribed Antibiotic and prednisone as prescribed Follow-up with your PCP Prescriptions: New benzonatate 200 mg capsule 200 mg PO TID PRN (Reason: cough) Qty: 30 0RF prednisone 20 mg tablet 40 mg PO DAILY Qty: 10 0RF cefuroxime axetil 500 mg tablet 500 mg PO BID 10 Days Qty: 20 0RF No Action carbidopa-levodopa 25-100 mg tablet extended release 1 tab PO TID ibuprofen 800 mg tablet 1 tab PO TID PRN (Reason: Pain, Mild) clonazepam 0.5 mg tablet 1 tab PO BID aspirin 81 mg tablet,delayed release (DR/EC) 1 tab PO ONCE omeprazole 20 mg capsule,delayed release(DR/EC) 1 cap PO DAILY albuterol sulfate 90 mcg/actuation HFA aerosol inhaler 2 puff inhalation QID PRN (Reason: asthma) cholecalciferol (vitamin D3) [Vitamin D3] 25 mcg (1,000 unit) capsule 1 cap PO DAILY duloxetine 60 mg capsule,delayed release(DR/EC) 1 cap PO BID multivitamin with folic acid [Daily-Josie (with folic acid)] 400 mcg tablet 1 tab PO DAILY Interventions: ED Discharge Assessment Last Done: 08/06/23 00:46 Discharge Date/Time: 08/06/23 00:52
[2023-08-05 19:38] VITALS: BP 113/69; PULSE 76; RESP 18; TEMP 36; O2SAT 98; BMI 25.8
[2023-08-05 20:34] LABS: MANUAL DIFF FLAG NO
[2023-08-05] MEDS: dexAMETHasone 2 MG TABLET 10 MG PO (20:34)
[2023-08-05] MEDS: guaiFEN/Codeine SF 200/20/10ML 10 ML LIQUID PO (20:34)
[2023-08-05 20:37] LABS: Basophils Percent Auto 0.7 % (0-2); Eosinophils Absolute Auto 0.2 X10*3/uL (0.0-0.4); Eosinophils Percent Auto 2.8 % (0-4); Hematocrit 32.7 % (37.0-47.0); Hemoglobin 10.2 g/dl (12.0-16.0); Imm Gran Abs Auto 0.02 X10*3/uL (0.00-0.03); Imm Gran Pct Auto 0.3 % (0.0-0.4); Lymphocytes Absolute Auto 1.9 X10*3/uL (1.2-4.9); Lymphocytes Percent Auto 30.5 % (20-40); Mean Corpuscular HGB Conc 31.2 g/dl (31.0-35.0); Mean Corpuscular Hemoglobin 26.6 pg (27.0-33.0); Mean Corpuscular Volume 85.2 fL (80.0-98.0); Mean Platelet Volume 10.7 fL (9.4-12.3); Monocytes Absolute Auto 0.6 X10*3/uL (0.1-1.2); Monocytes Percent Auto 9.6 % (2-11); Neutrophils Absolute Auto 3.4 x10*3/uL (2.0-8.3); Neutrophils Percent Auto 56.1 % (45-73); Platelet Count 311 X10*3/uL (160-400); Red Blood Count 3.84 X10*6/uL (4.20-5.50); Red Cell Distribution Width 14.1 % (11.0-16.0); White Blood Count 6.1 X10*3/uL (4.8-10.8)
[2023-08-05 20:50] LABS: Alanine Aminotransferase 13 U/L (0-31); Albumin Level 3.8 g/dL (3.5-5.0); Alkaline Phosphatase 57 U/L (39-117); Anion Gap 13 (12-20); Aspartate Amino Transferase 16 U/L (5-31); Bilirubin Direct 0.2 mg/dL (0.0-0.5); Bilirubin Total 0.5 mg/dL (0.0-1.0); Blood Urea Nitrogen 22 mg/dL (9-16); Calcium 9.3 mg/dL (8.4-10.2); Carbon Dioxide 25 mmol/L (22-29); Chloride 106 mmol/L (96-108); Creatinine Clr Calc Pharmacy 70.1; Estimated Glomerular Filt Rate > 60; Glucose Random 116 mg/dL (60-115); Potassium 4.2 mmol/L (3.3-5.1); Sodium 140 mmol/L (135-145); Total Protein 7.4 g/dL (6.5-8.0)
[2023-08-05 21:17] LABS: Influenza A PCR NEGATIVE (Negative); Influenza B PCR NEGATIVE (Negative); Resp Syncy Virus RNA Qual PCR NEGATIVE (Negative); SARS COV2 PCR INHOUSE NEGATIVE (Negative)
[2023-08-05] MEDS: Albuterol Sulfate 2.5 MG, Albuterol/Iprat 2.5/0.5MG 3 ML 3 ML INHALE (21:17)
[2023-08-05 21:19] VITALS: PULSE 79; RESP 18; O2SAT 97
[2023-08-05 21:19] LABS: Erythrocyte Sedimentation Rate 80 MM/HR (0-20)
[2023-08-05] MEDS: cefuroxime axetiL 500 MG TABLET PO (23:11)
[2023-08-05 23:13] VITALS: BP 104/65; PULSE 66; RESP 18; O2SAT 96
== END 2023-08-06 00:52 | disposition home or self-care (01) ==
PROVIDERS: Physician Assistant Medical; Emergency Provider Internal Medicine
DX: J20.9 Acute bronchitis, unspecified (principal); Z20.822 Contact with and (suspected) exposure to COVID-19; Z20.828 Contact with and (suspected) exposure to other viral communicable diseases
CPT/HCPCS: 0241U; 36415; 71045; 71250; 80048; 80076; 85025; 85652; 94640; 99284; J8540

== ENCOUNTER 2023-08-11 10:39 | Outpatient (REF) | payer OTHER, SELFPAY ==
--- NOTE | ~2023-08-11 | XR_ITS ---
EXAMINATION: XR CHEST CLINICAL INFORMATION: Cough for 5 weeks, history of treated TB, current 16 pound weight loss COMPARISON: AP portable chest 08/05/2023, PA and lateral chest 08/27/2009 TECHNIQUE: 2 views of the chest were obtained. 10:50 AM FINDINGS: There is no significant interval change. The lungs are well expanded and clear. The cardiomediastinal silhouette is within normal limits. No pleural effusions. No acute osseous abnormalities. XR/XR chest 2V IMPRESSION: Clear lungs.
== END 2023-08-11 10:40 | disposition home or self-care (01) ==
LOC: HO.XRAY 10:39
PROVIDERS: PCP Internal Medicine; Visit Provider Internal Medicine
DX: R05.2 Subacute cough (principal)
CPT/HCPCS: 71046

== ENCOUNTER 2024-06-05 11:14 | Outpatient (REF) | payer OTHER, SELFPAY ==
[2024-06-09 01:08] LABS: Acetylcholine Recept. Blocking <15 (<15)
[2024-06-15 16:09] LABS: Acetylcholine Recep Modulating <1
== END 2024-06-05 11:15 | disposition home or self-care (01) ==
LOC: HO.LAB 11:14
PROVIDERS: PCP Internal Medicine; Visit Provider Psychiatry & Neurology Neurology
DX: G70.00 Myasthenia gravis without (acute) exacerbation (principal)
CPT/HCPCS: 36415; 86041; 86042; 86043

== ENCOUNTER 2024-08-17 11:34 | Outpatient (REF) | payer OTHER, SELFPAY ==
[2024-08-17 14:26] LABS: MANUAL DIFF FLAG NO
[2024-08-17 14:37] LABS: Basophils Percent Auto 0.4 % (0-2); Eosinophils Percent Auto 0.5 % (0-4); Hematocrit 36.1 % (37.0-47.0); Hemoglobin 11.3 g/dl (12.0-16.0); Imm Gran Abs Auto 0.03 X10*3/uL (0.00-0.03); Imm Gran Pct Auto 0.4 % (0.0-0.4); Lymphocytes Absolute Auto 1.6 X10*3/uL (1.2-4.9); Lymphocytes Percent Auto 20.5 % (20-40); Mean Corpuscular HGB Conc 31.3 g/dl (31.0-35.0); Mean Corpuscular Hemoglobin 26.2 pg (27.0-33.0); Mean Corpuscular Volume 83.8 fL (80.0-98.0); Mean Platelet Volume 10.9 fL (9.4-12.3); Monocytes Absolute Auto 0.3 X10*3/uL (0.1-1.2); Monocytes Percent Auto 3.8 % (2-11); Neutrophils Absolute Auto 5.9 x10*3/uL (2.0-8.3); Neutrophils Percent Auto 74.4 % (45-73); Platelet Count 298 X10*3/uL (160-400); Red Blood Count 4.31 X10*6/uL (4.20-5.50); White Blood Count 7.9 X10*3/uL (4.8-10.8)
[2024-08-17 15:00] LABS: Alanine Aminotransferase 20 U/L (0-31); Albumin Level 4.2 g/dL (3.5-5.0); Alkaline Phosphatase 47 U/L (39-117); Anion Gap 10 (12-20); Aspartate Amino Transferase 24 U/L (5-31); Bilirubin Total 0.3 mg/dL (0.0-1.0); Blood Urea Nitrogen 15 mg/dL (9-16); Calcium 9.4 mg/dL (8.4-10.2); Carbon Dioxide 27 mmol/L (22-29); Chloride 108 mmol/L (96-108); Estimated Glomerular Filt Rate > 60; Glucose Random 138 mg/dL (60-115); Potassium 4.4 mmol/L (3.3-5.1); Sodium 141 mmol/L (135-145); Total Protein 7.2 g/dL (6.5-8.0)
[2024-08-17 15:16] LABS: TSH reflex Free T4 0.95 uIU/mL (0.32-4.0)
[2024-08-18 03:39] LABS: HIV AB/AG Nonreactive (Nonreactive); HIV Num 1 0.06 S/CO (0.00-0.99); ~HepC Num1 0.06 S/CO (0.00-0.79); ~Hepatitis C Antibody Nonreactive (Nonreactive)
== END 2024-08-17 11:35 | disposition home or self-care (01) ==
LOC: HO.CHCLDS 11:34
PROVIDERS: Visit Provider Internal Medicine
DX: G70.00 Myasthenia gravis without (acute) exacerbation (principal); Z12.11 Encounter for screening for malignant neoplasm of colon
CPT/HCPCS: 36415; 80053; 84443; 85025; 86803; 87389

== ENCOUNTER 2024-09-19 17:00 | Emergency (ER) | payer OTHER, SELFPAY ==
--- NOTE | ~2024-09-19 | XR_ITS ---
CLINICAL HISTORY: pain s p fall 5 view, chest and left ribs Comparison: DX/SR - XR CHEST 2V - 08/11/23 10:58 EST Findings: No fractures or dislocations. The visualized lungs are normal. IMPRESSION: No acute rib fractures. This document has been electronically signed by: Aileen Herrera MD on 09/19/2024 19:07:21
--- NOTE | ~2024-09-19 | XR_ITS ---
CLINICAL HISTORY: pain s p fall 4 view left hand and wrist Comparison: None Findings: No fractures or dislocations. Mild degenerative changes of the interphalangeal joints with joint space narrowing and osteophytosis. No erosions. No radiopaque foreign body. IMPRESSION: 1. No acute findings 2. Mild DJD of the interphalangeal joints. This document has been electronically signed by: Aileen Herrera MD on 09/19/2024 19:14:10
[2024-09-19 18:13] VITALS: BP 139/78; PULSE 77; RESP 18; TEMP 36.8; O2SAT 98; BMI 28.3
--- NOTE | 2024-09-19 18:14 | ED_ITS ---
HPI - Fall General Chief Complaint: Fall Stated Complaint: fell left ribs and wrist sore Time Seen by Provider: 09/19/24 21:50 Source: patient Mode of arrival: ambulatory Limitations: no limitations History of Present Illness ED Provider: jamil givens NP HPI Narrative: Patient is a 58-year-old female who presents emergency department for evaluation. She reports a mechanical slip and fall on her floor today with resultant pain to the left lateral ribs in the left wrist. She denies any head strike or loss consciousness. No use of anticoagulants or known coagulation disorders. Endorses the pain to the left lateral ribs increases with deep respiration though at rest she is not in significant pain or short of breath. Pain with movement of the left wrist but denies any numbness tingling or cold sensation to the hand. Related Data Home Medications ?Medication ?Instructions ?Recorded ?Confirmed albuterol sulfate 90 mcg/actuation 2 puff inhalation QID PRN asthma 07/10/21 07/10/21 aerosol inhaler aspirin 81 mg tablet,delayed 1 tab PO ONCE 07/10/21 07/10/21 release carbidopa ER 25 mg-levodopa 100 mg 1 tab PO TID 07/10/21 07/10/21 tablet,extended release cholecalciferol (vitamin D3) 25 1 cap PO DAILY 07/10/21 07/10/21 mcg (1,000 unit) capsule (Vitamin D3) clonazepam 0.5 mg tablet 1 tab PO BID 07/10/21 07/10/21 duloxetine 60 mg capsule,delayed 1 cap PO BID 07/10/21 07/10/21 release ibuprofen 800 mg tablet 1 tab PO TID PRN Pain, Mild 07/10/21 07/10/21 multivitamin with folic acid 400 1 tab PO DAILY 07/10/21 07/10/21 mcg tablet (Daily-Josie (with folic acid)) omeprazole 20 mg capsule,delayed 1 cap PO DAILY 07/10/21 07/10/21 release Previous Rx's ?Medication ?Instructions ?Recorded benzonatate 200 mg capsule 200 mg PO TID PRN cough #30 caps 08/05/23 cefuroxime axetil 500 mg tablet 500 mg PO BID 10 days #20 tabs 08/05/23 prednisone 20 mg tablet 40 mg (2 x 20 mg) PO DAILY #10 tabs 08/05/23 Allergies Allergy/AdvReac Type Severity Reaction Status Date / Time ANTIBIOTIC Allergy Unknown UNKNOWN Uncoded 09/19/24 18:16 Review of Systems Review of Systems: Yes all other systems are reviewed and are negative [facility] Past Medical History Attestation statement: The following information was validated with the patient. Source: old records reviewed Medical History Myasthenia gravis Migraine Gastroesophageal reflux disease Myasthenia gravis Depression Anxiety Social History Social History Advance Directives: No Advance Directives Information Provided: No Physical Exam Vital Signs: Vital Signs: Last Vital Signs Temp 97.8 F 09/19/24 22:34 Pulse 79 09/19/24 22:34 Resp 18 09/19/24 22:34 BP 126/70 09/19/24 22:34 Pulse Ox 99 09/19/24 22:34 O2 Del Method Room Air 09/19/24 22:34 BMI result Body Mass Index 28.3 Appearance: Alert.?Oriented to person, place and time. No acute distress.?Normal affect. Head: Normocephalic, atraumatic Eyes: Pupils equal, round and reactive to light.? ENT: Pharynx normal.?? Neck: Normal inspection.? Neck supple.?? CVS: Heart sounds normal. Normal heart rate and rhythm.? Pulses normal.?? Respiratory: No respiratory distress.? Lung sounds clear to auscultation bilaterally. Tenderness upon palpation to the left lateral chest wall without palpable deformity or crepitus. No ecchymosis. ? Abdomen: Soft and non-tender. Normoactive bowel sounds. Skin: Skin warm and dry.? Normal skin color.? Extremities: Localized swelling to the left wrist without obvious deformity. No erythema or warmth. 2+ radial pulse. Neuro: Moves all extremities spontaneously. Sensation intact bilaterally. CN II- XII intact. No focal neuro deficits. Ambulates with normal steady gait. Course Course Course Narrative: This is a Rapid Medical Examination (RME) performed by Charley Garcia PA-C in triage. Full HPI, ROS, assessment and treatment plan per primary provider in the Main ED. 58-year-old [place]ian-speaking female presents to the ER for evaluation after she slipped and fell around 330 today. She fell onto her left side and reports pain in her left-sided ribs in her left wrist. She did not hit her head or lose consciousness. She has not on anticoagulation. She reports pain in her left lateral ribs since the fall and left wrist pain with palpation and movement. on exam she appears uncomfortable. lungs are CTAB. pain with deep inspiration. left lateral chest wall tenderness without palpable crepitus. left wrist is swollen with no obvious deformity, 2+ radial pulse Plan: left rib xr and left hand/wrist xr Medical Decision Making Medical Decision Making MDM Narrative: Patient is a 58-year-old female who presents emergency department for evaluation after mechanical slip and fall as per HPI. No reported head injury or loss of consciousness, no use of anticoagulants. And focal neurological deficits on examination. Low suspicion for ICH, SDH, fracture, would defer CT head imaging at this time. XR of the ribs/chest was obtained prior to my assumption of care, is without evidence of acute rib fracture. She has diffuse tenderness along the left lateral chest wall without crepitus, LS CTA, not consistent with pneumothorax, likely a rib contusion. She is not hypoxic for notably dyspneic on exertion. We discussed bracing the chest during deep inspiration and cough. Provided with an incentive spirometer and educated on usage to prevent atelectasis/pneumonia. Regarding her left wrist, although there is localized swelling and there is not an obvious deformity, XR was obtained is without evidence of fracture or dislocation. The extremities neurovascularly intact distally. She was placed in a Velcro volar wrist splint, neurovascularly intact distally afterwards. The fall was strictly mechanical, she denies any preceding symptoms, pulse fall she is without headache, dizziness, vision changes, neck pain, numbness or tingling of the extremities. Advised outpatient follow-up with primary care provider. Discussed worrisome signs and symptoms that would warrant re-evaluation in the emergency department. All questions answered. Stable for discharge Differential Diagnosis Differential Diagnoses: The differential diagnosis associated with the presentation includes (See narrative above) Admission/Observation Consideration of admission/observation: Escalation of care including admission/observation considered (See narrative above) Independent Interpretation I performed an independent interpretation of an: Plain X-Ray (See narrative above) Radiology Impression Discussion of test interpretation with radiology: I have reviewed the radiologist's reading. Radiologist Impression: 5 view, chest and left ribs Comparison: DX/SR - XR CHEST 2V - 08/11/23 10:58 EST Findings: No fractures or dislocations. The visualized lungs are normal. IMPRESSION: No acute rib fractures. 4 view left hand and wrist Comparison: None Findings: No fractures or dislocations. Mild degenerative changes of the interphalangeal joints with joint space narrowing and osteophytosis. No erosions. No radiopaque foreign body. IMPRESSION: 1. No acute findings 2. Mild DJD of the interphalangeal joints. External Record Review External record reviewed: Outpatient record Tests considered The following testing was considered but not selected: See narrative above Prescription Management I considered prescription management with: Pain Medication Chronic Conditions Patient?s care impacted by: Other (See [facility]) Discharge Plan Discharge Clinical Impression: Contusion of rib on left side, Left wrist sprain Patient Disposition: Home, Self-Care Instructions: How to Use an Incentive Spirometer (ED), Wrist Sprain (ED), Rib Contusion (ED) Additional Instructions: Be sure to rest over the next few days. You may apply ice to the areas of pain including your ribs and wrist for 10-15 minutes 3-4 times daily. You can take ibuprofen 200 mg, 3 tablets (600mg) every 6-8 hours as needed for pain, in addition to Tylenol 500 mg, 2 tablets (1,000mg) every 4-6 hours as needed for pain, but not to exceed 3 doses daily (3,000mg).? Used the splint provided for the wrist to facilitate pain, and limiting mobilization while you are having acute pain. As discussed there is no evidence of fracture here. X-ray does not show evidence of rib fractures. You have been provided with an incentive spirometer and instructed on its usage, while you are resting at home I suggest using it over the next few days every time there is a commercial on the television to help you take deep breaths to prevent lung damage/pneumonia. Follow-up with your primary care doctor within 2-3 days. Return with any new or worsening symptoms or concerns Prescriptions: No Action carbidopa-levodopa 25-100 mg tablet extended release 1 tab PO TID ibuprofen 800 mg tablet 1 tab PO TID PRN (Reason: Pain, Mild) clonazepam 0.5 mg tablet 1 tab PO BID aspirin 81 mg tablet,delayed release (DR/EC) 1 tab PO ONCE omeprazole 20 mg capsule,delayed release(DR/EC) 1 cap PO DAILY albuterol sulfate 90 mcg/actuation HFA aerosol inhaler 2 puff inhalation QID PRN (Reason: asthma) cholecalciferol (vitamin D3) [Vitamin D3] 25 mcg (1,000 unit) capsule 1 cap PO DAILY duloxetine 60 mg capsule,delayed release(DR/EC) 1 cap PO BID multivitamin with folic acid [Daily-Josie (with folic acid)] 400 mcg tablet 1 tab PO DAILY benzonatate 200 mg capsule 200 mg PO TID PRN (Reason: cough) Qty: 30 0RF prednisone 20 mg tablet 40 mg PO DAILY Qty: 10 0RF cefuroxime axetil 500 mg tablet 500 mg PO BID 10 Days Qty: 20 0RF Referrals: Physician,Unknown J [Primary Care Provider] - Interventions: ED Discharge Assessment Last Done: 09/19/24 22:34 Discharge Date/Time: 09/19/24 22:34 Print Language: Ghanaian
[2024-09-19 21:41] VITALS: BP 126/70; PULSE 79; RESP 18; TEMP 36.6; O2SAT 99
--- NOTE | 2024-09-19 22:15 | PC.NURSE ---
Pt reeval by PA in triage, incentive spirometry teaching competed by RT. Cleared for dc home.
[2024-09-19 22:34] VITALS: BP 126/70; PULSE 79; RESP 18; TEMP 36.6; O2SAT 99
== END 2024-09-19 22:34 | disposition home or self-care (01) ==
PROVIDERS: Emergency Provider Emergency Medicine
DX: S20.212A Contusion of left front wall of thorax, initial encounter (principal); S63.502A Unspecified sprain of left wrist, initial encounter; R07.81 Pleurodynia; R07.89 Other chest pain; M25.532 Pain in left wrist; W18.30XA Fall on same level, unspecified, initial encounter; Y93.89 Activity, other specified; Y92.89 Other specified places as the place of occurrence of the external cause; Y99.8 Other external cause status
CPT/HCPCS: 71101; 73110; 73130; 94010; 99283

== ENCOUNTER → 2024-09-19 18:14 | Outpatient (BNV) | payer OTHER, SELFPAY | PROVIDERS: Visit Provider Student in an Organized Health Care Education/Training Program | DX: R07.82 Intercostal pain (principal); M79.642 Pain in left hand | CPT/HCPCS: 71101; 73110; 73130 ==